=== PATIENT | male | born 2000 | race Caucasian/White ===

== ENCOUNTER 2024-11-01 03:09 | Emergency (ER) | payer SELFPAY | END 2024-11-01 03:25 | LOC: VM.ED 03:09 | DX: T75.4XXA Electrocution, initial encounter (principal); S80.211A Abrasion, right knee, initial encounter; S00.81XA Abrasion of other part of head, initial encounter; W86.8XXA Exposure to other electric current, initial encounter | CPT/HCPCS: 99283; 99284 ==